=== PATIENT | male | born 1950 | race Two or more races ===

== ENCOUNTER 2017-06-04 22:37 | Emergency (ER) | payer MEDICAID ==
[~2017-06-04] VITALS: Ht 170.2 cm; Wt 69.9 kg
[2017-06-05] MEDS ORDERED: HYDROCODONE/APAP 5/325MG 1 EACH TABLET PO ONE (01:00)
[2017-06-05] MEDS ORDERED: methylPREDNISolone SOD SUCC 125 MG/2ML VIAL IV ONE (01:00)
--- NOTE | 2017-06-05 01:00 | NUR ---
BIBWIFE C/O LEFT EAR ACHE/PAIN X 3 DAYS DENIES TRAUMA. PT AMBULATED TO BED WITH STEADY GAIT. VS WNL. AWAITING MD ORDERS.
[2017-06-05] MEDS ORDERED: methylPREDNISolone SOD SUCC 125 MG/2ML VIAL ONE (01:03)
[2017-06-05] MEDS ORDERED: HYDROCODONE/APAP 5/325MG 1 EACH TABLET ONE (01:03)
[2017-06-05 01:06] LABS: EOSINOPHILS % (AUTO) 0.2 % (0.0-6.0); HEMATOCRIT 43 % (33-45); HEMOGLOBIN 14.3 g/dL (11.5-14.8); LYMPHOCYTES # (AUTO) 0.4 /CMM (0.8-4.8); LYMPHOCYTES % (AUTO) 6.1 % (20.0-44.0); MEAN CORPUSCULAR HEMOGLOBIN 30 PG (26.0-33.0); MEAN CORPUSCULAR HGB CONC 33 g/dl (31.0-36.0); MEAN CORPUSCULAR VOLUME 91 fL (82-100); MONOCYTES # (AUTO) 0.5 /CMM (0.1-1.30); MONOCYTES % (AUTO) 6.2 % (2.0-12.0); NEUTROPHILS # (AUTO) 6.3 /CMM (1.8-8.9); NEUTROPHILS % (AUTO) 87.5 % (43.0-81.0); PLATELET COUNT (AUTO) 253 /CMM (150-450); RDW COEFFICIENT OF VARIATION 12.4 (11.5-15.0); RED BLOOD CELL COUNT(AUTO) 4.75 MIL/uL (4.0-5.2); WHITE BLOOD COUNT (AUTO) 7.2 K/uL (4.3-11.0)
--- NOTE | 2017-06-05 01:11 | NUR ---
PT LEFT FOR CT IN WHEELCHAIR.
[2017-06-05 01:15] LABS: CALCIUM, SERUM 9.5 mg/dL (8.5-10.1); CREATININE 0.9 mg/dL (0.6-1.3); POTASSIUM 4.1 mmol/L (3.5-5.1)
--- NOTE | 2017-06-05 01:19 | NUR ---
Note brad in ED - 06/05/17 at 0120 by OSITO ULTRASOUND AT BEDSIDE.
--- NOTE | 2017-06-05 01:20 | NUR ---
PT RETURNED FROM CT.
[2017-06-05 02:13] VITALS: BP 110/64
== END 2017-06-05 02:18 | disposition home or self-care (01) ==
LOC: EDSEX 22:39 → ER 22:39
DX: H92.02 Otalgia, left ear (principal)
CPT/HCPCS: 36415; 70486-TC; 80048-TC; 85025-TC; A4606; J2930; Z7610